=== PATIENT | male | born 1965 | race Two or more races ===

== ENCOUNTER 2025-08-23 13:56 | Inpatient (IN) | payer MEDICARE ==
[~2025-08-23] VITALS: Ht 170.2 cm; Wt 100.1 kg
--- NOTE | 2025-08-23 14:04 | ECG ---
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
--- NOTE | 2025-08-23 15:01 | ED.PDOC ---
HPI Comments 59 year old male presents to the ED with chief complaint of chest pain onset today (08/23/25). Patient was at dialysis center this morning, when he began experiencing Lt chest pain as well as RT leg pain. states patient's BP was elevated during dialysis. PMHx ESRD, DM, HTN. Denies shortness of breath, dizziness, fever, chills, nausea, vomiting, diarrhea, headache, hematemesis, dysuria, hematuria. No other symptoms or modifying factors present at this time. Chief Complaint: Chest Pain Time Seen by MD: 14:50 Reviewed Notes: Medications, Allergies Allergies: Coded Allergies: NO KNOWN ALLERGIES (Unverified , 05/06/25) Information Source: Patient, Spouse Mode of Arrival: Wheelchair Severity: Moderate Timing: Hours Duration: Since onset Prehospital treatment: None Location: Chest (L) Radiation: No Radiation Quality: Pressure Onset: At Rest Cardiac Risk Factors: HTN, Diabetes PE Risk Factors: None History of: None Modifying Factors: Nothing Past Medical History PAST MEDICAL HISTORY: DM, ESRD, HTN Family History Family History: Reviewed,noncontributory to illness, No family hx of Cancer, No family hx of DM, No family hx of Heart leticia, No family hx of HTN, No family hx ofKidney leticia, No family hx of Liver leticia, No family hx of Lung leticia, No family hx of Stroke Social History Smoker: Cigarettes Alcohol: Denies ETOH Use Drugs: Denies Drug Use Lives In: Home Constitutional: denies: chills, diaphoresis, fatigue, fever, malaise, sweats, weakness, others EENTM: denies: blurred vision, double vision, ear bleeding, ear discharge, ear drainage, ear pain, ear ringing, eye pain, eye redness, hearing loss, mouth pain, mouth swelling, nasal discharge, nose bleeding, nose congestion, nose pain, photophobia, tearing, throat pain, throat swelling, voice changes, others Respiratory: denies: cough, hemoptysis, orthopnea, SOB at rest, shortness of breath, SOB with excertion, stridor, wheezing, others Cardiovascular: reports: chest pain; denies: dizzy spells, diaphoresis, Dyspnea on exertion, edema, irregular heart beat, left arm pain, lightheadedness, palpitations, PND, syncope, others Gastrointestinal: denies: abdomen distended, abdominal pain, blood streaked bowels, constipated, diarrhea, dysphagia, difficulty swallowing, hematemesis, melena, nausea, poor appetite, poor fluid intake, rectal bleeding, rectal pain, vomiting, others Genitourinary: denies: burning, dysuria, flank pain, frequency, hematuria, incontinence, penile discharge, penile sore, pain, testicle pain, testicle swelling, urgency, others Neurological: denies: dizziness, fainting, headache, left sided numbness, left sided weakness, numbness, paresthesia, pre-existing deficit, right sided numbness, right sided weakness, seizure, speech problems, tingling, tremors, weakness, others Musculoskeletal: reports: others (Lt leg pain); denies: back pain, gout, joint pain, joint swelling, muscle pain, muscle stiffness, neck pain Integumetry: denies: bruises, change in color, change in hair/nails, dryness, laceration, lesions, lumps, rash, wounds, others Allergic/Immunocompromised: denies: Difficulty Healing, Frequent Infections, Hives, Itching, others Hematologic/Lymphatic: denies: anemia, blood clots, easy bleeding, easy bruising, swollen glands, others Endocrine: denies: excessive hunger, excessive sweating, excessive thirst, excessive urination, flushing, intolerance to cold, intolerance to heat, unexplained weight gain, unexplained weight loss, others Psychiatric: denies: anxiety, bipolar disorder, depression, hopeless, panic disorder, schizophrenia, sleepless, suicidal, others All Other Systems: Reviewed and Negative Physical Exam General Appearance: No Apparent Distress, Normal HEENT: Normal ENT Inspection, Pharynx Normal, TMs Normal Neck: Full Range of Motion, Non-Tender, Normal, Normal Inspection Respiratory: Chest Non-Tender, Lungs Clear, No Accessory Muscle Use, No Respiratory Distress, Normal Breath Sounds Cardiovascular: No Edema, No JVD, No Murmur, No Gallop, Normal Peripheral Pulses, Regular Rate/Rhythm Breast Exam: Deferred Gastrointestinal: No Organomegaly, Non Tender, No Pulsatile Mass, Normal Bowel Sounds, Soft Genitalia: Deferred Pelvic: Deferred Rectal: Deferred Extremities: No calf tenderness, Normal capillary refill, Normal inspection, Normal range of motion, Non-tender, No pedal edema Musculoskeletal : Apperance: Normal Neurologic: Alert, container maker II-XII nml as Tested, No Motor Deficits, Normal Affect, Normal Mood, No Sensory Deficits Cerebellar Function: Normal Reflexes: Normal Skin: Dry, Normal Color, Warm Lymphatic: No Adenopathy EKG EKG : Pulse Rate (adult): 96 Cardiac Rhythm: NSR Was a procedure done? Was a procedure done?: No CP Differential Dx Differential Diagnosis: MAT, VA Differential Diagnosis: CHF, HTN Essential, HTN Accelerated X-Ray, Labs, Meds, VS Vital Signs Date Time Temp Pulse Resp B/P (MAP) Pulse Ox O2 Delivery O2 Flow Rate FiO2 08/23/25 17:07 92 08/23/25 16:31 98.2 92 18 167/85 (112) 95 98.2 08/23/25 16:31 92 18 95 Room Air 08/23/25 15:11 94 08/23/25 15:01 96 08/23/25 14:04 98.0 95 19 163/77 99 98.0 08/23/25 14:01 96 Lab Test 08/23/25 17:00 08/23/25 14:50 08/23/25 13:58 Range/Units Troponin I High Sensitivity 36 33 31 </=54 ng/L White Blood Count 5.4 4.4-10.8 10^3/uL Red Blood Count 3.46 L 4.5-5.90 10^6/uL Hemoglobin 10.5 L 13.5-17.5 g/dL Hematocrit 32.2 L 41.0-53.0 % Mean Corpuscular Volume 93.1 80.0-100.0 fL Mean Corpuscular Hemoglobin 30.2 28.0-32.0 pg Mean Corpuscular Hemoglobin Concent 32.5 32.0-36.0 g/dL Red Cell Distribution Width 17.7 H 11.8-14.3 % Platelet Count 124 L 140-450 10^3/uL Mean Platelet Volume 7.7 6.9-10.8 fL Neutrophils (%) (Auto) 74.6 37.0-80.0 % Lymphocytes (%) (Auto) 7.7 L 10.0-50.0 % Monocytes (%) (Auto) 9.9 0.0-12.0 % Eosinophils (%) (Auto) 6.6 0.0-7.0 % Basophils (%) (Auto) 1.2 0.0-2.0 % Neutrophils # (Auto) 4.1 1.6-8.6 10 ^3/uL Lymphocytes # (Auto) 0.4 0.4-5.4 10 ^3/uL Monocytes # (Auto) 0.5 0-1.3 10 ^3/uL Eosinophils # (Auto) 0.4 0-0.8 10 ^3/uL Basophils # (Auto) 0.1 0-0.2 10 ^3/uL Nucleated Red Blood Cells 0.0 % Sodium Level 137 136-145 mmol/L Potassium Level 4.6 3.5-5.1 mmol/L Chloride Level 94 L 98-107 mmol/L Carbon Dioxide Level 31 20-31 mmol/L Anion Gap 12 5-15 Blood Urea Nitrogen 35 H 9-23 mg/dL Creatinine 5.16 H 0.700-1.30 mg/dL Glomerular Filtration Rate Calc 12 >90 mL/min BUN/Creatinine Ratio 6.8 L 10.0-20.0 Serum Glucose 241 H 74-106 mg/dL Calcium Level 9.0 8.7-10.4 mg/dL B-Type Natriuretic Peptide 1588.03 0-100 pg/mL [place] [id number] Ph: [phone] DIAGNOSTIC IMAGING Diagnostic Imaging Report : [id number] Signed PATIENT: JARRETT PAT ACCT: [id number] UNIT: [id number] : 1965 LOC: ER ROOM / BED: / AGE / SEX: 59 / M ADM STATUS: REG ER SERVICE [id number] ORDERING PHYSICIAN: EDILBERTO MARTÍNEZ MD PROCEDURE(s): CXRP - CHEST PORTABLE REASON: cp ORDER NUMBER(s): [id number], ACCESSION NUMBER(s): [id number] XY CHEST PORTABLE, HISTORY: cp COMPARISON: XY CHEST PORTABLE on DOS: 08/16/25, XY CHEST PORTABLE on DOS: 08/09/25, XY CHEST PORTABLE on DOS: 07/26/25 XY CHEST PORTABLE on DOS: 08/16/25, XY CHEST PORTABLE on DOS: 08/09/25, XY CHEST PORTABLE on DOS: 07/26/25 TECHNICAL DATA: 1 view of the chest was obtained. FINDINGS: Lines and tubes: None Cardiomediastinal silhouette: normal Pulmonary vasculature: prominent Lung expansion: normal Lung airspace: normal Lung interstitium: normal Pleura: normal Pneumothorax: no Bones: Unremarkable Other: no IMPRESSION: Pulmonary vascular congestion. ATED BY: BOBY AGUILAR MD DICTATED DATE/TIME: 08/23/251528 SIGNED BY: BOBY AGUILAR MD SIGNED DATE/TIME: 08/23/251528 CC: Time of 1ST Reevaluation: 15:20 Reevaluation 1ST: Unchanged Patient Education/Counseling: Diagnosis, Treatment, Prognosis Family Education/Counseling: Diagnosis, Treatment, Prognosis SEPSIS Sepsis Screen Date sepsis recognized/suspect: Aug 23, 2025 Time Sepsis recognized/suspect: 1355 Recent Procedure: No On Antibiotic Therapy: No Respiratory Rate >20: No Heart Rate >90: No Temp<36 C (96.8 F) or >38.3 C: No SBP <90 or MAP <65 mmHG: No New Acute Mental Status Change: No Is the patient on CPAP, BIPAP,: No Physician Orders Urinalysis (08/23/25 14:01) Chest Portable (08/23/25 14:56) Vital Signs Date Time Temp Pulse Resp B/P (MAP) Pulse Ox O2 Delivery O2 Flow Rate FiO2 08/23/25 17:07 92 08/23/25 16:31 98.2 92 18 167/85 (112) 95 98.2 08/23/25 16:31 92 18 95 Room Air 08/23/25 15:11 94 08/23/25 15:01 96 08/23/25 14:04 98.0 95 19 163/77 99 98.0 08/23/25 14:01 96 Laboratory Tests Test 08/23/25 13:58 White Blood Count 5.4 10^3/uL (4.4-10.8) Departure 1 Departure Time of Disposition: 17:55 (Patient presented with shortness of breath that was concerning for possible STEMI, ACS, PE, Pneumonia, Muscle Strain, COPD, Dissection, Acute on Chronic systolic and Diastolic dysfunction. Data: 1. I ordered and reviewed the result of at least 3 labs including a CBC, BMP, and Troponin. 2. I independently interpreted the following tests: EKG which shows sinus arrhthmia and Chest X-ray which shows cardiomegaly.Risk:This patient has a high risk of morbidity due to further diagnostic testing or treatment and may suffer from an acute cardiac or respiratory disorder but is most consitent with an acute chf exacerbation. Patient should be admitted for further workup and possible expert consultation. ) Impression: Primary Impression: Acute on chronic systolic heart failure Additional Impression: Shortness of breath Disposition: ADMITTED INPATIENT Admit to: Tele Condition: Guarded Critical Care Note Critical Care Time?: Yes Critical care comment: Acute on chronic heart failure Authorized and Performed by: Edilberto Martínez MD Total critical care time: Approximately 43 minutes Due to a high probability of clinically significant, life threatening deterioration, the patient required my highest level of preparedness to intervene emergently and I personally spent this critical care time directly and personally managing the patient. This critical care time included obtaining a history; examining the patient; pulse oximetry; ordering and review of studies; arranging urgent treatment with development of a management plan; evaluation of patient's response to treatment; frequent reassessment; and, discussions with other providers. This critical care time was performed to assess and manage the high probability of imminent, life-threatening deterioration that could result in multi-organ failure. It was exclusive of separately billable procedures and treating other patients and teaching time. Please see my other sections and the rest of the note for further information on patient assessment and treatment. Stability Stability form required: No Heart Score Heart Score: Heart Score Response (Comments) Value History Slightly Suspicious 0 EKG Repolarization Disturb 1 Age 45-64 1 Risk Factors >3 or Hx ASHD 2 Troponin >3 x's Normal limit 2 Total 6 I personally scribed for EDILBERTO MARTÍNEZ MD ([email or web address]) on 08/23/25 at 15:01. El ectronically submitted by Renae Auguste ([email or web address]). I personally scribed for EDILBERTO MARTÍNEZ MD ([email or web address]) on 08/23/25 at 15:39. Electr onically submitted by Renae Auguste ([email or web address]). EDILBERTO MARTÍNEZ MD Aug 23, 2025 15:01
[2025-08-23 15:12] LABS: Hematocrit 32.2 % (41.0-53.0); Hemoglobin 10.5 g/dL (13.5-17.5); Mean Corpuscular Hemoglobin 30.2 pg (28.0-32.0); Mean Corpuscular Volume 93.1 fL (80.0-100.0); Nucleated Red Blood Cells % 0.0 %; Potassium 4.6 mmol/L (3.5-5.1); Sodium 137 mmol/L (136-145)
[2025-08-23 15:14] LABS: Anion Gap 12 (5-15); Calcium 9.0 mg/dL (8.7-10.4); Carbon Dioxide 31 mmol/L (20-31)
[2025-08-23 15:16] LABS: Chloride 94 mmol/L (98-107)
[2025-08-23 15:19] LABS: BUN/Creatinine Ratio 6.8 (10.0-20.0); Blood Urea Nitrogen 35 mg/dL (9-23); Glucose 241 mg/dL (74-106)
--- NOTE | 2025-08-23 15:22 | DVH ---
XY CHEST PORTABLE, HISTORY: cp COMPARISON: XY CHEST PORTABLE on DOS: 08/16/25, XY CHEST PORTABLE on DOS: 08/09/25, XY CHEST PORTABLE o n DOS: 07/26/25 XY CHEST PORTABLE on DOS: 08/16/25, XY CHEST PORTABLE on DOS: 08/09/25, XY CHEST PORTABLE on DOS: 5 TECHNICAL DATA: 1 view of the chest was obtained. FINDINGS: Lines and tubes: None Cardiomediastinal silhouette: normal Pulmonary vasculature: prominent Lung expansion: normal Lung airspace: normal Lung interstitium: normal Pleura: normal Pneumothorax: no Bones: Unremarkable Other: no IMPRESSION: Pulmonary vascular congestion.
--- NOTE | 2025-08-23 16:04 | ECG ---
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
--- NOTE | 2025-08-23 17:09 | ECG ---
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
[2025-08-23] MEDS: FUROSEMIDE 40 MG/4 ML VIAL IV ONE (18:28)
[2025-08-23] MEDS ORDERED: ACETAMINOPHEN 325 MG TAB PO PRN (20:00)
[2025-08-23] MEDS ORDERED: DEXTROSE (50%) 50ML SYRG IV PRN (20:00)
[2025-08-23 21:24] VITALS: BP 176/84; PULSE 97; RESP 18; TEMP 98.4; O2SAT 99
[2025-08-23 22:02] LABS: Urine Protein, UAD 2+ (Negative)
--- NOTE | 2025-08-23 22:09 | DVHHP2 ---
History of Present Illness Reason for Visit: Chest pain History of Present Illness 59-year-old male presents for evaluation of chest pain. Patient reports a one day history of substernal pressure-like nonradiating chest pain with associated shortness for breath. Patient reports symptoms starting while being dialyzed. He states being unable to complete his dialysis session due to his blood pressure becoming really high in the 200s. No nausea or vomiting. No other acute complaints reported. Past Medical History Hypertension, end-stage renal disease, diabetes mellitus Past Surgical History Dialysis access Family History Noncontributory Smoke: <1 pack per day ALCOHOL: none Drugs: None Lives: with Family Review of Systems Review of Systems Review of systems are currently negative otherwise addressed in HPI. Allergies: Coded Allergies: NO KNOWN ALLERGIES (Unverified , 05/06/25) Medications Current Medications Medications Dose Ordered Sig/Luke Route Start Time Stop Time Status Last Admin Dose Admin Atorvastatin Calcium 40 mg HS PO 08/23/25 22:00 Isosorbide Mononitrate 60 mg DAILY PO 08/24/25 10:00 Sacubitril/ Valsartan 1 tab BID PO 08/23/25 22:00 Clopidogrel Bisulfate 75 mg DAILY PO 08/24/25 10:00 Diagnostic Test (Pha) 1 strip ACHS 08/23/25 22:00 Insulin Human Regular ACHS SC 08/23/25 22:00 Dextrose 50 ml UD PRN IV 08/23/25 20:00 Ondansetron HCl 4 mg Q4HP PRN IV 08/23/25 20:00 Acetaminophen 650 mg Q6HP PRN PO 08/23/25 20:00 Exam Vital Signs Vital Signs Date Time Temp Pulse Resp B/P (MAP) Pulse Ox O2 Delivery O2 Flow Rate FiO2 08/23/25 20:24 98.5 93 18 133/77 (95) 97 98.5 08/23/25 16:31 Room Air Exam Gen: 59-year-old male in mild distress Skin: Warm, dry, normal color and texture, no rash. HEENT: Normocephalic atraumatic, mucous membranes moist and pink. Neck: Cervical and supraclavicular nodes normal without enlargement, trachea is midline, thyroid gland is normal without masses. Pulmonary: Clear to auscultation and percussion bilaterally. Cardiac: Regular rate and rhythm. No murmur Abdomen: Soft, nontender, nondistended, bowel sounds present all 4 quadrants, no guarding, no rigidity, no organomegaly. Extremities: No cyanosis, clubbing, no edema Neuro: Cranial nerves II through XII grossly intact, normal affect and speech, no focal motor deficits. Labs/Xrays ORDERING PHYSICIAN: EDILBERTO MARTÍNEZ MD PROCEDURE(s): CXRP - CHEST PORTABLE REASON: cp ORDER NUMBER(s): [id number], ACCESSION NUMBER(s): [id number] XY CHEST PORTABLE, HISTORY: cp COMPARISON: XY CHEST PORTABLE on DOS: 08/16/25, XY CHEST PORTABLE on DOS: 08/09/25, XY CHEST PORTABLE on DOS: 07/26/25 XY CHEST PORTABLE on DOS: 08/16/25, XY CHEST PORTABLE on DOS: 08/09/25, XY CHEST PORTABLE on DOS: 07/26/25 TECHNICAL DATA: 1 view of the chest was obtained. FINDINGS: Lines and tubes: None Cardiomediastinal silhouette: normal Pulmonary vasculature: prominent Lung expansion: normal Lung airspace: normal Lung interstitium: normal Pleura: normal Pneumothorax: no Bones: Unremarkable Other: no IMPRESSION: Pulmonary vascular congestion. Labs Test 08/23/25 20:29 08/23/25 17:00 08/23/25 13:58 Range/Units Urine Color Yellow Yellow Urine Clarity Clear Clear Urine pH 8.0 5.0-9.0 Urine Specific [place] 1.007 1.001-1.035 Urine Protein 2+ H Negative Urine Ketones Negative Negative Urine Blood Trace H Negative /uL Urine Nitrite Negative Negative Urine Bilirubin Negative Negative Urine Urobilinogen Normal Negative mg/dL Urine Leukocyte Esterase Trace Negative /uL Urine RBC None seen 0 - 3 /hpf Urine Squamous Epithelial Cells None seen <5 /hpf Urine Bacteria None seen None Seen /hpf Urine Glucose 3+ H Normal mg/dL Troponin I High Sensitivity 36 </=54 ng/L White Blood Count 5.4 4.4-10.8 10^3/uL Red Blood Count 3.46 L 4.5-5.90 10^6/uL Hemoglobin 10.5 L 13.5-17.5 g/dL Hematocrit 32.2 L 41.0-53.0 % Mean Corpuscular Volume 93.1 80.0-100.0 fL Mean Corpuscular Hemoglobin 30.2 28.0-32.0 pg Mean Corpuscular Hemoglobin Concent 32.5 32.0-36.0 g/dL Red Cell Distribution Width 17.7 H 11.8-14.3 % Platelet Count 124 L 140-450 10^3/uL Mean Platelet Volume 7.7 6.9-10.8 fL Neutrophils (%) (Auto) 74.6 37.0-80.0 % Lymphocytes (%) (Auto) 7.7 L 10.0-50.0 % Monocytes (%) (Auto) 9.9 0.0-12.0 % Eosinophils (%) (Auto) 6.6 0.0-7.0 % Basophils (%) (Auto) 1.2 0.0-2.0 % Neutrophils # (Auto) 4.1 1.6-8.6 10 ^3/uL Lymphocytes # (Auto) 0.4 0.4-5.4 10 ^3/uL Monocytes # (Auto) 0.5 0-1.3 10 ^3/uL Eosinophils # (Auto) 0.4 0-0.8 10 ^3/uL Basophils # (Auto) 0.1 0-0.2 10 ^3/uL Nucleated Red Blood Cells 0.0 % Sodium Level 137 136-145 mmol/L Potassium Level 4.6 3.5-5.1 mmol/L Chloride Level 94 L 98-107 mmol/L Carbon Dioxide Level 31 20-31 mmol/L Anion Gap 12 5-15 Blood Urea Nitrogen 35 H 9-23 mg/dL Creatinine 5.16 H 0.700-1.30 mg/dL Glomerular Filtration Rate Calc 12 >90 mL/min BUN/Creatinine Ratio 6.8 L 10.0-20.0 Serum Glucose 241 H 74-106 mg/dL Calcium Level 9.0 8.7-10.4 mg/dL B-Type Natriuretic Peptide 1588.03 0-100 pg/mL SEPSIS Sepsis Screen Date sepsis recognized/suspect: Aug 23, 2025 Time Sepsis recognized/suspect: 1355 Recent Procedure: No On Antibiotic Therapy: No Respiratory Rate >20: No Heart Rate >90: No Temp<36 C (96.8 F) or >38.3 C: No SBP <90 or MAP <65 mmHG: No New Acute Mental Status Change: No Is the patient on CPAP, BIPAP,: No Physician Orders Chest Portable (08/23/25 14:56) *Dr. Elo Ochoa -Zhao Velazquez (08/23/25 19:46) Atorvastatin (Lipitor) (08/23/25 22:00) Isosorbide Mononitrate Tablet (Imdur Er (08/24/25 10:00) Sacubitril-Valsartan (Entresto 24-26 Mg (08/23/25 22:00) Clopidogrel Bisulfate (Plavix) (08/24/25 10:00) Consistent Carb(Ccho)Diabetes (08/24/25 Breakfast) Glucose Blood (Accu-Chek Comfort Curve T (08/23/25 22:00) Insulin R (Human) (Insulin R) (08/23/25 22:00) Dextrose 50% Syringe (08/23/25 20:00) Admit (08/23/25 19:46) Ondansetron Hcl (Zofran) (08/23/25 20:00) Echo 2d Mode Cardiac Dop (08/23/25 19:46) Condition: Stable (08/23/25 19:46) Acetaminophen Tablet (Tylenol Tablet) (08/23/25 20:00) Bedrest With Bathroom Privileg (08/23/25 19:46) Vital Signs Date Time Temp Pulse Resp B/P (MAP) Pulse Ox O2 Delivery O2 Flow Rate FiO2 08/23/25 20:24 98.5 93 18 133/77 (95) 97 98.5 08/23/25 18:28 160/72 08/23/25 17:07 92 08/23/25 16:31 98.2 92 18 167/85 (112) 95 98.2 08/23/25 16:31 92 18 95 Room Air 08/23/25 15:11 94 08/23/25 15:01 96 Laboratory Tests Test 08/23/25 13:58 White Blood Count 5.4 10^3/uL (4.4-10.8) Medications Medications Dose Ordered Sig/Luke Route Start Time Stop Time Status Last Admin Dose Admin Furosemide 40 mg ONCE ONCE IV 08/23/25 18:00 08/23/25 18:05 DC 08/23/25 18:28 40 MG Assessment/Plan Assessment/Plan Assessment Fluid overload End-stage renal disease, dialysis dependent Acute on chronic congestive heart failure Diabetes mellitus Hypertension Plan Admit the patient to Med surge to the hospitalist Nephrology consultation Echocardiogram pending Resume home medications Continue treatment per orders. Plan discussed with: Patient My Orders Orders - JOVANI VENEGAS Procedure Category Date Status Time *Dr. Elo Ochoa -Da CONS 08/23/25 Transmitted Caroline 19:46 Atorvastatin (Lipitor) PHA 08/23/25 In Process 22:00 Isosorbide PHA 08/24/25 In Process Mononitrate Tablet 10:00 Sacubitril-Valsartan PHA 08/23/25 In Process (Entresto 24-26 Mg 22:00 Clopidogrel Bisulfate PHA 08/24/25 In Process (Plavix) 10:00 Consistent DIET 08/24/25 Transmitted Carb(Ccho)Diabetes Breakfast Glucose Blood PHA 08/23/25 In Process (Accu-Chek Comfort 22:00 Insulin R (Human) PHA 08/23/25 In Process (Insulin R) 22:00 Dextrose 50% Syringe PHA 08/23/25 In Process 20:00 Admit ADMIT 08/23/25 Transmitted 19:46 Ondansetron Hcl PHA 08/23/25 In Process (Zofran) 20:00 Echo 2d Mode Cardiac US 08/23/25 Logged DOP 19:46 Condition: Stable NUSRAT 08/23/25 In Process 19:46 Acetaminophen Tablet PHA 08/23/25 In Process (Tylenol Tablet) 20:00 Bedrest With Bathroom NUSRAT 08/23/25 In Process Privileg 19:46 Date of Service: Aug 23, 2025 Billing Provider: JOVANI VENEGAS Common Visit Codes: [id number] INP/OBS CARE (HIGH) JOVANI VENEGAS Aug 23, 2025 22:09
[2025-08-23 22:38] VITALS: BP 176/84; PULSE 84; PULSE 97; RESP 16; RESP 18; TEMP 98.4; O2SAT 98; O2SAT 99
[2025-08-23] MEDS: SACUBITRIL-VALSARTAN 24mg/26mg TAB PO SCH (23:01)
[2025-08-23] MEDS: ATORVASTATIN 20 MG TAB PO SCH (23:03)
[2025-08-24] VITALS (7 sets, daily range): BP systolic 150–163; BP diastolic 82–107; PULSE 86–100; RESP 18–20; TEMP 97.6–97.9; O2SAT 94–100
[2025-08-24] MEDS: KETOROLAC TROMETH 30 MG/ML 1ML VIAL IV ONE (03:38)
[2025-08-24] MEDS: hydrALAZINE HCL 20 MG/ML VL IV ONE (03:39)
[2025-08-24] MEDS: HYDROcodone-ACET 5/325MG TAB PO PRN (03:43)
[2025-08-24] MEDS: InsuLIN REG 1unit/0.01ml Soln (100units/ml) SC SCH (06:37)
[2025-08-24] MEDS: ACCU-CHEK COMFORT CURVE STRIP VI SCH (06:42)
[2025-08-24] MEDS: ISOSORBIDE MONONITRATE ER 60 MG TAB PO SCH (08:50)
[2025-08-24] MEDS: CLOPIDOGREL BISULFATE 75 MG TAB PO SCH (08:50)
[2025-08-24] MEDS: HYDROcodone-ACET 10/325MG TAB PO ONE (13:15)
--- NOTE | 2025-08-24 13:17 | DVHPN2 ---
Reviewed: Care Plan, H&P, Labs, Medications, Previous Orders, Radiology Changes from previous H/P or p: No Changes Objective Vitals Vital Signs Date Time Temp Pulse Resp B/P (MAP) Pulse Ox O2 Delivery O2 Flow Rate FiO2 08/24/25 12:38 97.9 87 19 163/85 (111) 99 97.9 08/23/25 22:38 Room Air* 0 21 Intake/Output Intake and Output 08/24/25 07:00 Intake Total 200 ml Balance 200 ml Intake Oral 200 ml # Bowel Movements 1 Medications Current Medications Medications Dose Ordered Sig/Luke Route Start Time Stop Time Status Last Admin Dose Admin Atorvastatin Calcium 40 mg HS PO 08/23/25 22:00 08/23/25 23:03 40 MG Isosorbide Mononitrate 60 mg DAILY PO 08/24/25 10:00 08/24/25 08:50 60 MG Sacubitril/ Valsartan 1 tab BID PO 08/23/25 22:00 08/24/25 09:04 1 TAB Clopidogrel Bisulfate 75 mg DAILY PO 08/24/25 10:00 08/24/25 08:50 75 MG Diagnostic Test (Pha) 1 strip ACHS 08/23/25 22:00 08/24/25 11:24 1 STRIP Insulin Human Regular ACHS SC 08/23/25 22:00 08/24/25 12:15 3 UNITS Dextrose 50 ml UD PRN IV 08/23/25 20:00 Ondansetron HCl 4 mg Q4HP PRN IV 08/23/25 20:00 Acetaminophen 650 mg Q6HP PRN PO 08/23/25 20:00 Acetaminophen/ Hydrocodone Bitart 1 tab Q6HPRN PRN PO 08/24/25 03:15 08/24/25 11:23 1 TAB Laboratory Results Laboratory Tests 08/23/25 13:58 Chemistry Test 08/23/25 13:58 Calcium Level 9.0 mg/dL (8.7-10.4) Cardiac Markers Test 08/23/25 13:58 B-Type Natriuretic Peptide 1588.03 pg/mL (0-100) Urinalysis Test 08/23/25 20:29 Urine Color Yellow (Yellow) Urine Clarity Clear (Clear) Urine pH 8.0 (5.0-9.0) Urine Specific [place] 1.007 (1.001-1.035) Urine Protein 2+ (Negative) H Urine Ketones Negative (Negative) Urine Blood Trace /uL (Negative) H Urine Nitrite Negative (Negative) Urine Bilirubin Negative (Negative) Urine Urobilinogen Normal mg/dL (Negative) Urine Leukocyte Esterase Trace /uL (Negative) Urine RBC 3 /hpf (0 - 3) Urine Microscopic WBC 4 /HPF (0-3) H Urine Squamous Epithelial Cells Mod /hpf (<5) Urine Bacteria None seen /hpf (None Seen) Urine Glucose 3+ mg/dL (Normal) H Labs and/or images reviewed: Labs reviewed by me, Image(s) reviewed by me Assessment/Plan Assessment/Plan Chest pain troponin negative consult for Dr. Santo Fluid overload End-stage renal disease, dialysis dependent consult with Dr. Elo Calle on chronic congestive heart failure: Cardiology consult Diabetes mellitus Hypertension Time Spent 70 minutes Advanced care planning time 20 minutes Patient is full code Plan discussed with: Patient My Orders Orders - ZEESHAN ESPINOZA MD Procedure Category Date Status Time * Cardiology Consult CONS 08/24/25 Verified 13:06 Date of Service: Aug 24, 2025 Billing Provider: ZEESHAN ESPINOZA MD Common Visit Codes: [id number] CARE 30-74 MIN ZEESHAN ESPINOZA MD Aug 24, 2025 13:17
--- NOTE | 2025-08-24 14:04 | DVHINCON2 ---
Date Seen: Aug 24, 2025 Referring Physician MD Andre Reason for Consultation Chest pain History of Present Illness This is a 59-year-old male patient who presents to emergency room with chief complaint of chest pain. Patient reports he was at his dialysis session undergoing dialysis when he began experiencing chest pain. He also states he noted that his blood pressure was greater than 200s systolic at that time. He describes the chest pain as unprovoked, intermittent, squeezing in nature, substernal and nonradiating. He denies any associated symptoms. He was brought to the emergency room for further evaluation. Initial twelve lead electrocardiogram reveals normal sinus rhythm without any significant ST segment changes and artifact noted. Initial troponin level of 31ng/L with flat trend thereafter. Significant past medical history includes coronary artery disease s/p multiple PTCA's and 7 BLANCA (on Plavix and aspirin), congestive heart failure, hypertension, dyslipidemia, COPD with continuous home O2 use, end-stage renal disease on hemodialysis, type 2 diabetes mellitus, and obesity. The patient states he used to follow up with [employer] in the outpatient setting, but has been unable to recently due to insurance changes. Past Medical History Past medical history reviewed. No other significant than mentioned above. Past Surgical History Cholecystectomy Appendectomy Laminectomy Family History: Patient reports no known family medical history. Family History Family history reviewed. Social History Patient has a 38 pack-year history, quit smoking November 17, 2024 Denies illicit drug use Denies alcohol use Allergies: Coded Allergies: NO KNOWN ALLERGIES (Unverified , 05/06/25) Home Meds Home medications reviewed. Current Medications Current Medications Medications (Trade) Dose Ordered Sig/Luke Route PRN Reason Start Time Stop Time Status Last Admin Atorvastatin Calcium (Lipitor) 40 mg HS PO 08/23/25 22:00 08/23/25 23:03 Isosorbide Mononitrate (Imdur Er Tablet) 60 mg DAILY PO 08/24/25 10:00 08/24/25 08:50 Sacubitril/ Valsartan (Entresto 24-26 Mg tab) 1 tab BID PO 08/23/25 22:00 08/24/25 09:04 Clopidogrel Bisulfate (Plavix) 75 mg DAILY PO 08/24/25 10:00 08/24/25 08:50 Diagnostic Test (Pha) (Accu-Chek Comfort Curve T) 1 strip ACHS 08/23/25 22:00 08/24/25 11:24 Insulin Human Regular (InsuLIN R) ACHS SC 08/23/25 22:00 08/24/25 12:15 Dextrose 50 ml UD PRN IV Blood Sugar LESS THAN 60 08/23/25 20:00 Ondansetron HCl (Zofran) 4 mg Q4HP PRN IV NAUSEA / VOMITING 08/23/25 20:00 Acetaminophen (Tylenol Tablet) 650 mg Q6HP PRN PO PAIN SCALE 1-3 OR TEMP>100.4 08/23/25 20:00 Acetaminophen/ Hydrocodone Bitart ([place] 5/325MG Tab) 1 tab Q6HPRN PRN PO MODERATE PAIN (4-6 PAIN SCALE) 08/24/25 03:15 08/24/25 11:23 Acetaminophen/ Hydrocodone Bitart ([place] 10/325MG Tab) 1 tab Q6HP PO 08/24/25 18:00 Future Hold Review of Systems Constitutional: No symptom reported Ears, Nose, & Throat: No symptom reported Eyes: No symptom reported Neurological: No symptoms reported Pulmonary/Respiratory: No symptoms reported Cardiovascular: Chest pain Gastrointestinal: No symptom reported Genitourinary: No symptom reported Musculoskeletal: No symptom reported Skin: No symptom reported Psychiatric: No symptom reported Endocrine: No symptom reported Hematologic/Lymphatic: No symptom reported Vital Signs Vital Signs Date Time Temp Pulse Resp B/P (MAP) Pulse Ox O2 Delivery O2 Flow Rate FiO2 08/24/25 12:38 97.9 87 19 163/85 (111) 99 97.9 08/23/25 22:38 Room Air* 0 21 Physical Exam General Appearance: Cooperative. Obese Pulmonary/Respiratory: Clear, bilateral breaths sounds. Cardiovascular/Chest: Regular rate and rhythm. Peripheral Pulses: 2+ Radial (R). 2+ Radial (L). 2+ Pedal (R). 2+ Pedal (L) Abdominal Exam: Normal bowel sounds. Ankle Exam: Mild nonpitting ankle edema Lower extremities: Negative lower extremity edema Neuro/Mental Status: A/OX4, coherent. Thoughts/Psych: Normal thought pattern. Appropriate mood and affect. Good judgment and insight. Appearance: No acute distress. Skin Exam: Normal inspection. Normal color. Warm and dry. Labs/Diagnostic Data Labs Test 08/24/25 11:23 08/23/25 20:29 08/23/25 17:00 08/23/25 13:58 Range/Units POC Glucose 172 H 70-106 mg/dl Urine Color Yellow Yellow Urine Clarity Clear Clear Urine pH 8.0 5.0-9.0 Urine Specific [place] 1.007 1.001-1.035 Urine Protein 2+ H Negative Urine Ketones Negative Negative Urine Blood Trace H Negative /uL Urine Nitrite Negative Negative Urine Bilirubin Negative Negative Urine Urobilinogen Normal Negative mg/dL Urine Leukocyte Esterase Trace Negative /uL Urine RBC 3 0 - 3 /hpf Urine Microscopic WBC 4 H 0-3 /HPF Urine Squamous Epithelial Cells Mod <5 /hpf Urine Bacteria None seen None Seen /hpf Urine Glucose 3+ H Normal mg/dL Troponin I High Sensitivity 36 </=54 ng/L White Blood Count 5.4 4.4-10.8 10^3/uL Red Blood Count 3.46 L 4.5-5.90 10^6/uL Hemoglobin 10.5 L 13.5-17.5 g/dL Hematocrit 32.2 L 41.0-53.0 % Mean Corpuscular Volume 93.1 80.0-100.0 fL Mean Corpuscular Hemoglobin 30.2 28.0-32.0 pg Mean Corpuscular Hemoglobin Concent 32.5 32.0-36.0 g/dL Red Cell Distribution Width 17.7 H 11.8-14.3 % Platelet Count 124 L 140-450 10^3/uL Mean Platelet Volume 7.7 6.9-10.8 fL Neutrophils (%) (Auto) 74.6 37.0-80.0 % Lymphocytes (%) (Auto) 7.7 L 10.0-50.0 % Monocytes (%) (Auto) 9.9 0.0-12.0 % Eosinophils (%) (Auto) 6.6 0.0-7.0 % Basophils (%) (Auto) 1.2 0.0-2.0 % Neutrophils # (Auto) 4.1 1.6-8.6 10 ^3/uL Lymphocytes # (Auto) 0.4 0.4-5.4 10 ^3/uL Monocytes # (Auto) 0.5 0-1.3 10 ^3/uL Eosinophils # (Auto) 0.4 0-0.8 10 ^3/uL Basophils # (Auto) 0.1 0-0.2 10 ^3/uL Nucleated Red Blood Cells 0.0 % Sodium Level 137 136-145 mmol/L Potassium Level 4.6 3.5-5.1 mmol/L Chloride Level 94 L 98-107 mmol/L Carbon Dioxide Level 31 20-31 mmol/L Anion Gap 12 5-15 Blood Urea Nitrogen 35 H 9-23 mg/dL Creatinine 5.16 H 0.700-1.30 mg/dL Glomerular Filtration Rate Calc 12 >90 mL/min BUN/Creatinine Ratio 6.8 L 10.0-20.0 Serum Glucose 241 H 74-106 mg/dL Calcium Level 9.0 8.7-10.4 mg/dL B-Type Natriuretic Peptide 1588.03 0-100 pg/mL Assessment Chest pain, rule out progressive coronary artery disease Severe coronary artery disease s/p multiple PTCAs and 7 BLANCA (on aspirin and Pl avix) Chronic compensated HFmrEF, NYHA class II Hypertension Dyslipidemia End-stage renal disease on hemodialysis COPD with continuous home O2 use Pulmonary hypertension Type 2 diabetes mellitus Thrombocytopenia Acute on chronic anemia History of tobacco use Obesity Plan/Recommendation We will continue with the following plan/recommendations (Dr. Santo): * Transthoracic echocardiogram to evaluate cardiac function and wall motion * Previous transthoracic echocardiogram from 05/07/2025 reveals an EF of 45% * Chest pain protocol * HEART score: 4 points (moderate score) * Aggressive BP control as tolerated * Antiplatelet therapy and lipid-lowering agent * Continue guideline directed medical therapy for CHF * Avoid ARNI/ABILIO/ARB, MRA and SGLT2i given renal disease * Close cardiac surveillance * Nuclear stress test The patient has underwent multiple coronary angiograms with left heart catheterizations with the last one done at this facility on 11/01/2024 (under different ) in which no catheter based intervention was deemed necessary at that time. The patient has not had a recent stress test. We will proceed with ordering a nuclear stress test given patient's presenting symptoms. In the meantime, continue with close cardiac surveillance and notify cardiology team immediately for any ECG changes. Thank you for allowing us to care for this patient. Please call with any questions or concerns. Critical care time spent: 44 minutes This medical document was created using an electronic medical record system with voice recognition software and computerized dictation system. Although this document has been carefully reviewed, there might still be some phonetic and typographical errors. Occasional wrong-word or ``sound-alike substitutions may have occurred due to the inherent limitations of voice recognition software. These areas are purely typographical due to imperfections of the software programs and do not reflect any compromise in the patient's medical care. Please read the chart carefully and recognize, using context, where these substitutions have occurred. Plan discussed with: Patient NYHA Physical activity limitations: Class2(Slight)fatigue,sob Date of Service: Aug 24, 2025 Billing Provider: RONA REBOLLEDO Cardiology Common Codes: [id number] INP/OBS CARE (High) Cardiology Consultation Codes: [id number] CONSULT <45MIN RONA REBOLLEDO Aug 24, 2025 14:04
--- NOTE | 2025-08-24 15:49 | DVHINCON2 ---
Date of service: Aug 24, [address] Oliver Powell Reason for Consultation Dialysis History of Present Illness 59 Y/O M with history of ESRD on HD , HTN, COPD, CAD s/p stent, and anemia of CKD presented with chief complaint of chest pain which started on dialysis yesterday. Troponin is negative x2. CXR shows pulmonary congestion. Nephrology consulted for dialysis Past Medical History ESRD HTN COPD CAD CHF Past Surgical History AVF creation Allergies: Coded Allergies: NO KNOWN ALLERGIES (Unverified , 05/06/25) Current Medications Current Medications Medications (Trade) Dose Ordered Sig/Luke Route PRN Reason Start Time Stop Time Status Last Admin Atorvastatin Calcium (Lipitor) 40 mg HS PO 08/23/25 22:00 08/23/25 23:03 Isosorbide Mononitrate (Imdur Er Tablet) 60 mg DAILY PO 08/24/25 10:00 08/24/25 08:50 Sacubitril/ Valsartan (Entresto 24-26 Mg tab) 1 tab BID PO 08/23/25 22:00 08/24/25 09:04 Clopidogrel Bisulfate (Plavix) 75 mg DAILY PO 08/24/25 10:00 08/24/25 08:50 Diagnostic Test (Pha) (Accu-Chek Comfort Curve T) 1 strip ACHS 08/23/25 22:00 08/24/25 11:24 Insulin Human Regular (InsuLIN R) ACHS SC 08/23/25 22:00 08/24/25 12:15 Dextrose 50 ml UD PRN IV Blood Sugar LESS THAN 60 08/23/25 20:00 Ondansetron HCl (Zofran) 4 mg Q4HP PRN IV NAUSEA / VOMITING 08/23/25 20:00 Acetaminophen (Tylenol Tablet) 650 mg Q6HP PRN PO PAIN SCALE 1-3 OR TEMP>100.4 08/23/25 20:00 Acetaminophen/ Hydrocodone Bitart ([place] 5/325MG Tab) 1 tab Q6HPRN PRN PO MODERATE PAIN (4-6 PAIN SCALE) 08/24/25 03:15 08/24/25 11:23 Acetaminophen/ Hydrocodone Bitart ([place] 10/325MG Tab) 1 tab Q6HP PO 08/24/25 18:00 Future Hold Aspirin 81 mg DAILY PO 08/25/25 10:00 Metoprolol Succinate (Toprol Xl) 25 mg DAILY PO 08/25/25 10:00 Hydralazine HCl (Apresoline Injection) 10 mg Q6HP PRN IV SBP>150 08/24/25 15:15 Family History: Patient reports no known family medical history. Review of Systems as per HPI, all other systems were reviewed and are negative. H&P Exam Vital Signs/I&O Vital Sign Date Time Temp Pulse Resp B/P (MAP) Pulse Ox O2 Delivery O2 Flow Rate FiO2 08/24/25 12:38 97.9 87 19 163/85 (111) 99 97.9 08/23/25 22:38 Room Air* 0 21 Intake and Output 08/23/25 08/24/25 19:00 07:00 Intake Total 200 ml Balance 200 ml Intake Oral 200 ml # Bowel Movements 1 Physical Exam Gen: NAD, AAOx3 HEENT: NC, AT Lungs: Crackles lung bases Cardiac: RRR, no murmur Abd: soft, no distention Ext: no edema Neuro: no focal deficits Labs/Diagnostic Data Labs/Diagnostic Data Laboratory Tests Test 08/24/25 15:34 08/24/25 11:23 08/23/25 20:29 08/23/25 17:00 Range/Units POC Glucose 172 H 70-106 mg/dl Urine Color Yellow Yellow Urine Clarity Clear Clear Urine pH 8.0 5.0-9.0 Urine Specific [place] 1.007 1.001-1.035 Urine Protein 2+ H Negative Urine Ketones Negative Negative Urine Blood Trace H Negative /uL Urine Nitrite Negative Negative Urine Bilirubin Negative Negative Urine Urobilinogen Normal Negative mg/dL Urine Leukocyte Esterase Trace Negative /uL Urine RBC 3 0 - 3 /hpf Urine Microscopic WBC 4 H 0-3 /HPF Urine Squamous Epithelial Cells Mod <5 /hpf Urine Bacteria None seen None Seen /hpf Urine Glucose 3+ H Normal mg/dL Troponin I High Sensitivity 36 </=54 ng/L Test 08/23/25 14:50 08/23/25 13:58 Range/Units Troponin I High Sensitivity 33 31 </=54 ng/L White Blood Count 5.4 4.4-10.8 10^3/uL Red Blood Count 3.46 L 4.5-5.90 10^6/uL Hemoglobin 10.5 L 13.5-17.5 g/dL Hematocrit 32.2 L 41.0-53.0 % Mean Corpuscular Volume 93.1 80.0-100.0 fL Mean Corpuscular Hemoglobin 30.2 28.0-32.0 pg Mean Corpuscular Hemoglobin Concent 32.5 32.0-36.0 g/dL Red Cell Distribution Width 17.7 H 11.8-14.3 % Platelet Count 124 L 140-450 10^3/uL Mean Platelet Volume 7.7 6.9-10.8 fL Neutrophils (%) (Auto) 74.6 37.0-80.0 % Lymphocytes (%) (Auto) 7.7 L 10.0-50.0 % Monocytes (%) (Auto) 9.9 0.0-12.0 % Eosinophils (%) (Auto) 6.6 0.0-7.0 % Basophils (%) (Auto) 1.2 0.0-2.0 % Neutrophils # (Auto) 4.1 1.6-8.6 10 ^3/uL Lymphocytes # (Auto) 0.4 0.4-5.4 10 ^3/uL Monocytes # (Auto) 0.5 0-1.3 10 ^3/uL Eosinophils # (Auto) 0.4 0-0.8 10 ^3/uL Basophils # (Auto) 0.1 0-0.2 10 ^3/uL Nucleated Red Blood Cells 0.0 % Sodium Level 137 136-145 mmol/L Potassium Level 4.6 3.5-5.1 mmol/L Chloride Level 94 L 98-107 mmol/L Carbon Dioxide Level 31 20-31 mmol/L Anion Gap 12 5-15 Blood Urea Nitrogen 35 H 9-23 mg/dL Creatinine 5.16 H 0.700-1.30 mg/dL Glomerular Filtration Rate Calc 12 >90 mL/min BUN/Creatinine Ratio 6.8 L 10.0-20.0 Serum Glucose 241 H 74-106 mg/dL Calcium Level 9.0 8.7-10.4 mg/dL B-Type Natriuretic Peptide 1588.03 0-100 pg/mL Assessment ESRD on HD Chest pain, negative serial troponin. rule out ACS Acute on chronic diastolic CHF COPD Hypertension Anemia of CKD Hyperphosphatemia Secondary hyperparathyroidism Metabolic acidosis Azotemia Plan: last HD was yesterday at [facility]. Next HD tomorrow () [facility] post HD as needed. goal Hb: 10-11 g/dl Cardiology consult Continue Metoprolol XL 25 mg PO daily aspirin and lipitor Plan discussed with: Patient DAVID GROVE MD Aug 24, 2025 15:49
[2025-08-24 16:01] LABS: Triglycerides 60.0 mg/dL (< 150)
[2025-08-24 16:02] LABS: Magnesium 2.2 mg/dL (1.6-2.6)
[2025-08-24 16:03] LABS: Cholesterol 147.0 mg/dL (< 200)
[2025-08-24 16:04] LABS: HDL Cholesterol 81.0 mg/dL (40-59)
[2025-08-24] MEDS: HYDROcodone-ACET 10/325MG TAB PO SCH (16:48)
[2025-08-25] VITALS (8 sets, daily range): BP systolic 124–177; BP diastolic 80–92; PULSE 63–95; RESP 17–19; TEMP 97.5–98.7; O2SAT 95–100
[2025-08-25] MEDS: hydrALAZINE HCL 20 MG/ML VL IV PRN (01:10)
[2025-08-25 06:41] LABS: Hematocrit 32.8 % (41.0-53.0); Hemoglobin 10.7 g/dL (13.5-17.5); Mean Corpuscular Hemoglobin 30.3 pg (28.0-32.0); Mean Corpuscular Volume 92.6 fL (80.0-100.0); Nucleated Red Blood Cells % 0.0 %
--- NOTE | 2025-08-25 06:47 | DVHPN2 ---
Progress Note - Dictate Date Seen: Aug 25, 2025 Medical Necessity Reason Pt with a Central, PICC or Fol: No Subjective no new symptoms vital signs Vital Sign Date Time Temp Pulse Resp B/P (MAP) Pulse Ox O2 Delivery O2 Flow Rate FiO2 08/25/25 05:00 97.5 89 17 142/84 (103) 100 97.5 08/24/25 20:00 Nasal Cannula* 4 36 Total Intake and Output 08/24/25 08/24/25 08/25/25 15:00 23:00 07:00 Intake Total 650 ml 800 ml Output Total 250 ml 500 ml Balance 400 ml 300 ml medications Current Medications Medications Dose Ordered Sig/Luke Route Start Time Stop Time Status Last Admin Dose Admin Atorvastatin Calcium 40 mg HS PO 08/23/25 22:00 08/24/25 21:34 Isosorbide Mononitrate 60 mg DAILY PO 08/24/25 10:00 08/24/25 08:50 Sacubitril/ Valsartan 1 tab BID PO 08/23/25 22:00 08/24/25 21:34 Clopidogrel Bisulfate 75 mg DAILY PO 08/24/25 10:00 08/24/25 08:50 Diagnostic Test (Pha) 1 strip ACHS 08/23/25 22:00 08/25/25 06:23 Insulin Human Regular ACHS SC 08/23/25 22:00 08/25/25 06:25 Dextrose 50 ml UD PRN IV 08/23/25 20:00 Ondansetron HCl 4 mg Q4HP PRN IV 08/23/25 20:00 Acetaminophen 650 mg Q6HP PRN PO 08/23/25 20:00 Acetaminophen/ Hydrocodone Bitart 1 tab Q6HPRN PRN PO 08/24/25 03:15 08/24/25 21:53 Acetaminophen/ Hydrocodone Bitart 1 tab Q6HP PO 08/24/25 18:00 Hold 08/24/25 16:48 Aspirin 81 mg DAILY PO 08/25/25 10:00 Metoprolol Succinate 25 mg DAILY PO 08/25/25 10:00 Hydralazine HCl 10 mg Q6HP PRN IV 08/24/25 15:15 08/25/25 01:10 objective Gen: NAD, AAOx3 HEENT: NC, AT Lungs: Crackles lung bases Cardiac: RRR, no murmur Abd: soft, no distention Ext: no edema Neuro: no focal deficits laboratory and microbiology Test 08/25/25 05:58 Range/Units Serum Glucose Pending Assessment/Plan ESRD on HD Chest pain, negative serial troponin. rule out ACS Acute on chronic diastolic CHF COPD Hypertension Anemia of CKD Hyperphosphatemia Secondary hyperparathyroidism Metabolic acidosis Azotemia Plan: last HD was on Friday at [facility]. Next HD today () [facility] post HD as needed. goal Hb: 10-11 g/dl Cardiology consult Continue Metoprolol XL 25 mg PO daily aspirin and lipitor Plan discussed with: Patient DAVID GROVE MD Aug 25, 2025 06:47
[2025-08-25] MEDS: SODIUM CHL 0.9% 1000 ML BAG XX ONE (07:00)
[2025-08-25 07:02] LABS: Alanine Aminotransferase 16 U/L (7-40); Anion Gap 13 (5-15); BUN/Creatinine Ratio 6.6 (10.0-20.0); Calcium 9.4 mg/dL (8.7-10.4); Carbon Dioxide 29 mmol/L (20-31); Total Protein 6.8 g/dL (5.7-8.2)
[2025-08-25 07:03] LABS: Albumin 4.2 g/dL (3.2-4.8)
[2025-08-25 07:04] LABS: Alkaline Phosphatase 139 U/L (46-116); Bilirubin, Total 0.3 mg/dL (0.2-1.0); Blood Urea Nitrogen 48 mg/dL (9-23); Chloride 92 mmol/L (98-107); Glucose 164 mg/dL (74-106); Potassium 5.5 mmol/L (3.5-5.1); Sodium 134 mmol/L (136-145)
[2025-08-25] MEDS: REGADENOSON 0.4 MG/5 ML SYRG IV ONE ×2 (07:44→07:45)
[2025-08-25] MEDS: ONDANSETRON HCL 4 MG/2 ML VIAL IV PRN (09:43)
[2025-08-25] MEDS: METOPROLOL SUCCINATE XL 50 MG TAB PO SCH (10:24)
--- NOTE | 2025-08-25 11:24 | DVHPN2 ---
Reviewed: Care Plan, H&P, Labs, Medications, Previous Orders, Radiology Changes from previous H/P or p: No Changes Objective Vitals Vital Signs Date Time Temp Pulse Resp B/P (MAP) Pulse Ox O2 Delivery O2 Flow Rate FiO2 08/25/25 10:24 91 170/90 08/25/25 09:00 97.5 19 99 97.5 08/24/25 20:00 Nasal Cannula* 4 36 Intake/Output Intake and Output 08/25/25 07:00 Intake Total 1450 ml Output Total 750 ml Balance 700 ml Intake Oral 1450 ml Output Urine Total 750 ml # Voids 2 # Bowel Movements 1 Medications Current Medications Medications Dose Ordered Sig/Luke Route Start Time Stop Time Status Last Admin Dose Admin Atorvastatin Calcium 40 mg HS PO 08/23/25 22:00 08/24/25 21:34 40 MG Isosorbide Mononitrate 60 mg DAILY PO 08/24/25 10:00 08/25/25 10:23 60 MG Sacubitril/ Valsartan 1 tab BID PO 08/23/25 22:00 08/25/25 10:17 1 TAB Clopidogrel Bisulfate 75 mg DAILY PO 08/24/25 10:00 08/25/25 10:18 75 MG Diagnostic Test (Pha) 1 strip ACHS 08/23/25 22:00 08/25/25 06:23 1 STRIP Insulin Human Regular ACHS SC 08/23/25 22:00 08/25/25 06:25 3 UNITS Dextrose 50 ml UD PRN IV 08/23/25 20:00 Ondansetron HCl 4 mg Q4HP PRN IV 08/23/25 20:00 08/25/25 09:43 4 MG Acetaminophen 650 mg Q6HP PRN PO 08/23/25 20:00 Acetaminophen/ Hydrocodone Bitart 1 tab Q6HPRN PRN PO 08/24/25 03:15 08/24/25 21:53 1 TAB Acetaminophen/ Hydrocodone Bitart 1 tab Q6HP PO 08/24/25 18:00 Hold 08/24/25 16:48 1 TAB Aspirin 81 mg DAILY PO 08/25/25 10:00 08/25/25 10:23 81 MG Metoprolol Succinate 25 mg DAILY PO 08/25/25 10:00 08/25/25 10:24 25 MG Hydralazine HCl 10 mg Q6HP PRN IV 08/24/25 15:15 08/25/25 01:10 10 MG Laboratory Results Laboratory Tests 08/25/25 05:58 Chemistry Test 08/24/25 15:34 08/25/25 05:58 Magnesium Level 2.2 mg/dL (1.6-2.6) Albumin 4.2 g/dL (3.2-4.8) Calcium Level 9.4 mg/dL (8.7-10.4) Total Protein 6.8 g/dL (5.7-8.2) Lipid panel Test 08/24/25 15:34 Cholesterol Level 147 mg/dL (< 200) HDL Cholesterol 81 mg/dL (40-59) H Triglycerides Level 60 mg/dL (< 150) LFT Test 08/25/25 05:58 Alanine Aminotransferase (ALT) 16 U/L (7-40) Alkaline Phosphatase 139 U/L (46-116) H Aspartate Amino Transferase (AST) 14 U/L (13-40) Total Bilirubin 0.3 mg/dL (0.2-1.0) HgA1c, TSH Test 08/24/25 15:34 Hemoglobin A1c 5.8 % A1C (<5.7) H Thyroid Stimulating Hormone (TSH) 1.38 uIU/mL (0.55-4.78) Urinalysis Test 08/23/25 20:29 Urine Color Yellow (Yellow) Urine Clarity Clear (Clear) Urine pH 8.0 (5.0-9.0) Urine Specific [place] 1.007 (1.001-1.035) Urine Protein 2+ (Negative) H Urine Ketones Negative (Negative) Urine Blood Trace /uL (Negative) H Urine Nitrite Negative (Negative) Urine Bilirubin Negative (Negative) Urine Urobilinogen Normal mg/dL (Negative) Urine Leukocyte Esterase Trace /uL (Negative) Urine RBC 3 /hpf (0 - 3) Urine Microscopic WBC 4 /HPF (0-3) H Urine Squamous Epithelial Cells Mod /hpf (<5) Urine Bacteria None seen /hpf (None Seen) Urine Glucose 3+ mg/dL (Normal) H Labs and/or images reviewed: Labs reviewed by me, Image(s) reviewed by me Assessment/Plan Assessment/Plan Chest pain, rule out progressive coronary artery disease echo 40 percent ejection fraction, Cardiolite stress test pending, cardiology consult by Dr. Antoine appreciated Severe coronary artery disease s/p multiple PTCAs and 7 BLANCA (on aspirin and Plavix) Chronic compensated HFmrEF, NYHA class II Hypertension Dyslipidemia End-stage renal disease on hemodialysis Nephrology consult appreciated COPD with continuous home O2 use Pulmonary hypertension Type 2 diabetes mellitus Thrombocytopenia Acute on chronic anemia History of tobacco use Obesity Time Spent 70 minutes Advanced care planning time 20 Plan discussed with: Patient My Orders Orders - ZEESHAN ESPINOZA MD Procedure Category Date Status Time * Cardiology Consult CONS 08/24/25 Transmitted 13:06 Hydrocodone-Acet PHA 08/24/25 In Process 10/325mg Tab ([place] 18:00 Date of Service: Aug 25, 2025 Billing Provider: ZEESHAN ESPINOZA MD Common Visit Codes: [id number] CARE 30-74 MIN ZEESHAN ESPINOZA MD Aug 25, 2025 11:24
[2025-08-25] MEDS: HYDROcodone-ACET 10/325MG TAB PO SCH (13:06)
[2025-08-26] VITALS (9 sets, daily range): BP systolic 116–168; BP diastolic 56–89; PULSE 80–103; RESP 17–20; TEMP 98.2–98.7; O2SAT 98–100
[2025-08-26] MEDS ORDERED: NITROGLYCERIN 0.4 MG SL TAB SL PRN (04:00)
[2025-08-26] MEDS ORDERED: MORPHINE SULFATE INJ 2 MG/ml SYRG IV PRN (04:00)
[2025-08-26] MEDS: NITROGLYCERIN 0.4 MG SL TAB SL PRN (04:11)
--- NOTE | 2025-08-26 07:32 | ECG ---
[facility] Test Date: 2025-08-26 Test Time: 03:36:19 Pat Name: JARRETT PAT Department: Respiratoy Room: 0232T Gender: M [employer]: : 1965 Requested By: MARKOS MCKINNEY Order Number: [id number] Reading MD: Preet Santo Measurements Intervals Reading Rate: 91 P: 72 NV: 184 QRS: 90 QRSD: 103 T: 76 QT: 393 QTc: 484 Interpretive Statements Sinus rhythm Borderline right axis deviation Borderline prolonged QT interval Baseline wander in lead(s) V1 Electronically Signed On 08-27-2025 20:00:57 PDT by Preet Santo Please click the below link to view image of tracing.
[2025-08-26] MEDS ORDERED: INSU100I54 SC (08:26)
[2025-08-26] MEDS ORDERED: AMLO1TAB22 PO (08:26)
[2025-08-26] MEDS ORDERED: HYDR50TA47 PO (08:26)
[2025-08-26] MEDS ORDERED: ALL100T PO (08:26)
[2025-08-26] MEDS ORDERED: ASPI325T6 PO (08:26)
[2025-08-26] MEDS ORDERED: GABA-1308 PO (08:26)
[2025-08-26] MEDS ORDERED: CYCL-838 PO (08:26)
[2025-08-26] MEDS ORDERED: FURO1TAB31 PO (08:26)
[2025-08-26] MEDS ORDERED: METO25TA93 PO (08:26)
[2025-08-26] MEDS ORDERED: CLOP75TA28 PO (08:26)
[2025-08-26] MEDS ORDERED: ATOR40TA52 PO (08:26)
[2025-08-26] MEDS ORDERED: DIAZ-680 OR (08:26)
[2025-08-26] MEDS ORDERED: ISOS1TAB29 PO (08:26)
[2025-08-26] MEDS ORDERED: PANT40TA2 PO (08:26)
[2025-08-26] MEDS ORDERED: CLON0.1T PO (08:26)
[2025-08-26] MEDS ORDERED: SACU1TAB PO (08:26)
[2025-08-26] MEDS ORDERED: NITR0.4S29 SL (08:26)
--- NOTE | 2025-08-26 10:44 | DVHPN2 ---
Reviewed: Care Plan, H&P, Labs, Medications, Previous Orders, Radiology Changes from previous H/P or p: No Changes Objective Vitals Vital Signs Date Time Temp Pulse Resp B/P (MAP) Pulse Ox O2 Delivery O2 Flow Rate FiO2 08/26/25 09:45 168/89 08/26/25 09:43 94 08/26/25 09:00 98.7 20 98 98.7 08/26/25 08:00 Nasal Cannula* 4 36 Intake/Output Intake and Output 08/26/25 07:00 Intake Total 1300 ml Balance 1300 ml Intake Oral 1300 ml # Voids 5 # Bowel Movements 1 Medications Current Medications Medications Dose Ordered Sig/Luke Route Start Time Stop Time Status Last Admin Dose Admin Atorvastatin Calcium 40 mg HS PO 08/23/25 22:00 08/25/25 21:12 40 MG Isosorbide Mononitrate 60 mg DAILY PO 08/24/25 10:00 08/26/25 09:45 60 MG Sacubitril/ Valsartan 1 tab BID PO 08/23/25 22:00 08/26/25 09:45 1 TAB Clopidogrel Bisulfate 75 mg DAILY PO 08/24/25 10:00 08/26/25 09:43 75 MG Diagnostic Test (Pha) 1 strip ACHS 08/23/25 22:00 08/26/25 06:42 1 STRIP Insulin Human Regular ACHS SC 08/23/25 22:00 08/26/25 06:43 8 UNITS Dextrose 50 ml UD PRN IV 08/23/25 20:00 Ondansetron HCl 4 mg Q4HP PRN IV 08/23/25 20:00 08/25/25 09:43 4 MG Acetaminophen 650 mg Q6HP PRN PO 08/23/25 20:00 Acetaminophen/ Hydrocodone Bitart 1 tab Q6HPRN PRN PO 08/24/25 03:15 08/25/25 17:39 1 TAB Aspirin 81 mg DAILY PO 08/25/25 10:00 08/26/25 09:44 81 MG Metoprolol Succinate 25 mg DAILY PO 08/25/25 10:00 08/26/25 09:43 25 MG Hydralazine HCl 10 mg Q6HP PRN IV 08/24/25 15:15 08/26/25 05:02 10 MG Acetaminophen/ Hydrocodone Bitart 1 tab Q6H PO 08/25/25 13:00 08/26/25 06:42 1 TAB Nitroglycerin 0.4 mg Q5MINP PRN SL 08/26/25 04:00 08/26/25 04:11 0.4 MG Morphine Sulfate 2 mg Q30M PRN IV 08/26/25 04:00 Laboratory Results Laboratory Tests 08/25/25 05:58 Urinalysis Test 08/23/25 20:29 Urine Color Yellow (Yellow) Urine Clarity Clear (Clear) Urine pH 8.0 (5.0-9.0) Urine Specific [place] 1.007 (1.001-1.035) Urine Protein 2+ (Negative) H Urine Ketones Negative (Negative) Urine Blood Trace /uL (Negative) H Urine Nitrite Negative (Negative) Urine Bilirubin Negative (Negative) Urine Urobilinogen Normal mg/dL (Negative) Urine Leukocyte Esterase Trace /uL (Negative) Urine RBC 3 /hpf (0 - 3) Urine Microscopic WBC 4 /HPF (0-3) H Urine Squamous Epithelial Cells Mod /hpf (<5) Urine Bacteria None seen /hpf (None Seen) Urine Glucose 3+ mg/dL (Normal) H Labs and/or images reviewed: Labs reviewed by me, Image(s) reviewed by me Assessment/Plan Assessment/Plan Chest pain, rule out progressive coronary artery disease echo 40 percent ejection fraction, Cardiolite stress test pending, cardiology consult by Dr. Antoine appreciated Severe coronary artery disease s/p multiple PTCAs and 7 BLANCA (on aspirin and Plavix) Chronic compensated HFmrEF, NYHA class II Hypertension Dyslipidemia End-stage renal disease on hemodialysis Nephrology consult appreciated COPD with continuous home O2 use Pulmonary hypertension Type 2 diabetes mellitus Thrombocytopenia Acute on chronic anemia History of tobacco use Obesity Time Spent 70 minutes Advanced care planning time 20 mts Echocardiogram result pending Cardiolite stress test result pending Plan discussed with: Patient My Orders Orders - ZEESHAN EPSINOZA MD Procedure Category Date Status Time Hydrocodone-Acet PHA 08/25/25 In Process 10/325mg Tab ([place] 13:00 Date of Service: Aug 26, 2025 Billing Provider: ZEESHAN ESPINOZA MD Common Visit Codes: [id number] INP/OBS CARE(HIGH) ZEESHAN ESPINOZA MD Aug 26, 2025 10:43
--- NOTE | 2025-08-26 19:21 | DVHPN2 ---
Progress Note - Dictate Date Seen: Aug 26, 2025 Medical Necessity Reason Pt with a Central, PICC or Fol: No Subjective no new symptoms vital signs Vital Sign Date Time Temp Pulse Resp B/P (MAP) Pulse Ox O2 Delivery O2 Flow Rate FiO2 08/26/25 16:33 84 20 165/85 (111) 100 08/26/25 13:00 98.6 98.6 08/26/25 08:00 Nasal Cannula* 4 36 Total Intake and Output 08/25/25 08/25/25 08/26/25 15:00 23:00 07:00 Intake Total 600 ml 700 ml Balance 600 ml 700 ml medications Current Medications Medications Dose Ordered Sig/Luke Route Start Time Stop Time Status Last Admin Dose Admin Atorvastatin Calcium 40 mg HS PO 08/23/25 22:00 08/25/25 21:12 40 MG Isosorbide Mononitrate 60 mg DAILY PO 08/24/25 10:00 08/26/25 09:45 60 MG Sacubitril/ Valsartan 1 tab BID PO 08/23/25 22:00 08/26/25 09:45 1 TAB Clopidogrel Bisulfate 75 mg DAILY PO 08/24/25 10:00 08/26/25 09:43 75 MG Diagnostic Test (Pha) 1 strip ACHS 08/23/25 22:00 08/26/25 17:00 1 STRIP Insulin Human Regular ACHS SC 08/23/25 22:00 08/26/25 11:30 2 UNITS Dextrose 50 ml UD PRN IV 08/23/25 20:00 Ondansetron HCl 4 mg Q4HP PRN IV 08/23/25 20:00 08/25/25 09:43 4 MG Acetaminophen 650 mg Q6HP PRN PO 08/23/25 20:00 Acetaminophen/ Hydrocodone Bitart 1 tab Q6HPRN PRN PO 08/24/25 03:15 08/25/25 17:39 1 TAB Aspirin 81 mg DAILY PO 08/25/25 10:00 08/26/25 09:44 81 MG Metoprolol Succinate 25 mg DAILY PO 08/25/25 10:00 08/26/25 09:43 25 MG Hydralazine HCl 10 mg Q6HP PRN IV 08/24/25 15:15 08/26/25 11:24 10 MG Acetaminophen/ Hydrocodone Bitart 1 tab Q6H PO 08/25/25 13:00 08/26/25 18:48 1 TAB Nitroglycerin 0.4 mg Q5MINP PRN SL 08/26/25 04:00 08/26/25 04:11 0.4 MG Morphine Sulfate 2 mg Q30M PRN IV 08/26/25 04:00 Lorazepam 1 mg Q5MINP PRN IV 08/26/25 10:45 objective Gen: NAD, AAOx3 HEENT: NC, AT Lungs: Crackles lung bases Cardiac: RRR, no murmur Abd: soft, no distention Ext: no edema Neuro: no focal deficits laboratory and microbiology Laboratory Tests 08/25/25 05:58 Test 08/25/25 05:58 Range/Units Serum Glucose 164 H 74-106 mg/dL Assessment/Plan ESRD on HD Chest pain, negative serial troponin. rule out ACS Acute on chronic diastolic CHF COPD Hypertension Anemia of CKD Hyperphosphatemia Secondary hyperparathyroidism Metabolic acidosis Azotemia Plan: s/p HD yesterday- Next HD on Friday ALIY[facility] post HD as needed. goal Hb: 10-11 g/dl Cardiology consult Continue Metoprolol XL 25 mg PO daily aspirin and lipitor Plan discussed with: Patient, Spouse DAVID GROVE MD Aug 26, 2025 19:21
[2025-08-27] VITALS (7 sets, daily range): BP systolic 134–167; BP diastolic 63–88; PULSE 82–111; RESP 18–19; TEMP 97.7–98.2; O2SAT 96–100
--- NOTE | 2025-08-27 01:44 | DVHOP ---
DATE OF SURGERY: 08/24/2025 TECHNIQUE PERFORMED: Myocardial perfusion scan. DESCRIPTION OF PROCEDURE: The patient underwent resting images by giving intravenous Cardiolite with the help of the SPECT camera. Different images of the left ventricle were obtained, which include long axis, short axis, and horizontal axial view. The patient subsequently underwent the stress images and then was given intravenous Cardiolite. Stress and rest images both have been compared. There is a large perfusion defect noted in the inferior wall of the left ventricle, which does not reperfuse on the resting image. Normal perfusion of the interventricular septum, anterior wall and anterolateral wall. Left ventricular is moderately dilated. The patient's left ventricular ejection fraction is 34% and moderately reduced. CONCLUSION: * Large fixed perfusion defect noted in the inferior wall of the left ventricle consistent with previous extensive inferior wall myocardial infarction. * The left ventricle is dilated. * Normal perfusion of the interventricular septum, anterior wall and anterolateral wall. * The left ventricular ejection fraction is moderately reduced and 34% with previous inferior wall myocardial infarction. MD NAT Wallace TID: [id number] RECEIPT: [id number]
[2025-08-27] MEDS: SODIUM CHL 0.9% 1000 ML BAG XX ONE (07:00)
[2025-08-27] MEDS ORDERED: HYDR-4798 PO (10:50)
--- NOTE | 2025-08-27 10:52 | DVHPN2 ---
Reviewed: Care Plan, H&P, Labs, Medications, Previous Orders, Radiology Changes from previous H/P or p: No Changes Objective Vitals Vital Signs Date Time Temp Pulse Resp B/P (MAP) Pulse Ox O2 Delivery O2 Flow Rate FiO2 08/27/25 08:43 98.2 111 18 154/74 (100) 100 98.2 08/26/25 20:00 Nasal Cannula* 4 36 Intake/Output Intake and Output 08/27/25 06:59 Intake Total 1500 ml Output Total 1940 ml Balance -440 ml Intake Oral 1500 ml Output Urine Total 1940 ml Medications Current Medications Medications Dose Ordered Sig/Luke Route Start Time Stop Time Status Last Admin Dose Admin Atorvastatin Calcium 40 mg HS PO 08/23/25 22:00 08/26/25 21:01 40 MG Isosorbide Mononitrate 60 mg DAILY PO 08/24/25 10:00 08/26/25 09:45 60 MG Sacubitril/ Valsartan 1 tab BID PO 08/23/25 22:00 08/26/25 21:00 1 TAB Clopidogrel Bisulfate 75 mg DAILY PO 08/24/25 10:00 08/26/25 09:43 75 MG Diagnostic Test (Pha) 1 strip ACHS 08/23/25 22:00 08/27/25 06:03 1 STRIP Insulin Human Regular ACHS SC 08/23/25 22:00 08/26/25 21:03 4 UNITS Dextrose 50 ml UD PRN IV 08/23/25 20:00 Ondansetron HCl 4 mg Q4HP PRN IV 08/23/25 20:00 08/25/25 09:43 4 MG Acetaminophen 650 mg Q6HP PRN PO 08/23/25 20:00 Acetaminophen/ Hydrocodone Bitart 1 tab Q6HPRN PRN PO 08/24/25 03:15 08/26/25 20:55 1 TAB Aspirin 81 mg DAILY PO 08/25/25 10:00 08/26/25 09:44 81 MG Metoprolol Succinate 25 mg DAILY PO 08/25/25 10:00 08/26/25 09:43 25 MG Hydralazine HCl 10 mg Q6HP PRN IV 08/24/25 15:15 08/26/25 11:24 10 MG Acetaminophen/ Hydrocodone Bitart 1 tab Q6H PO 08/25/25 13:00 08/27/25 06:40 1 TAB Nitroglycerin 0.4 mg Q5MINP PRN SL 08/26/25 04:00 08/26/25 04:11 0.4 MG Morphine Sulfate 2 mg Q30M PRN IV 08/26/25 04:00 Lorazepam 1 mg Q5MINP PRN IV 08/26/25 10:45 Laboratory Results Laboratory Tests 08/25/25 05:58 Urinalysis Test 08/23/25 20:29 Urine Color Yellow (Yellow) Urine Clarity Clear (Clear) Urine pH 8.0 (5.0-9.0) Urine Specific [place] 1.007 (1.001-1.035) Urine Protein 2+ (Negative) H Urine Ketones Negative (Negative) Urine Blood Trace /uL (Negative) H Urine Nitrite Negative (Negative) Urine Bilirubin Negative (Negative) Urine Urobilinogen Normal mg/dL (Negative) Urine Leukocyte Esterase Trace /uL (Negative) Urine RBC 3 /hpf (0 - 3) Urine Microscopic WBC 4 /HPF (0-3) H Urine Squamous Epithelial Cells Mod /hpf (<5) Urine Bacteria None seen /hpf (None Seen) Urine Glucose 3+ mg/dL (Normal) H Labs and/or images reviewed: Labs reviewed by me, Image(s) reviewed by me Assessment/Plan Assessment/Plan Chest pain, rule out progressive coronary artery disease echo 40 percent ejection fraction, cardiology consult by Dr. Antoine appreciated Cardiolite stress test shows * Large fixed perfusion defect noted in the inferior wall of the left ventricle consistent with previous extensive inferior wall myocardial infarction. 34% ejection fraction Severe coronary artery disease s/p multiple PTCAs and 7 BLANCA (on aspirin and Plavix) Chronic compensated HFmrEF, NYHA class II Hypertension Dyslipidemia End-stage renal disease on hemodialysis Nephrology consult appreciated COPD with continuous home O2 use Pulmonary hypertension Type 2 diabetes mellitus Thrombocytopenia Acute on chronic anemia History of tobacco use Obesity Time Spent 70 minutes Advanced care planning time 20 mts Echocardiogram result pending Cardiolite stress test result pending Plan discussed with: Patient My Orders Orders - ZEESHAN ESPINOZA MD Procedure Category Date Status Time Lorazepam 2mg/Ml Inj PHA 08/26/25 In Process (Ativan Inj) 10:45 Date of Service: Aug 27, 2025 Billing Provider: ZEESHAN ESPINOZA MD Common Visit Codes: [id number] INP/OBS CARE(HIGH) ZEESHAN ESPINOZA MD Aug 27, 2025 10:52
--- NOTE | 2025-08-27 10:56 | DVHDS2 ---
Discharge Summary Date of Admission Aug 23, 2025 at 19:46 Date of Discharge: Aug 27, 2025 Admitting Diagnosis Chest pain Wounds: None Labs/Diagnostic Data: Laboratory Results Test 08/27/25 06:02 08/25/25 05:58 08/24/25 15:34 08/23/25 20:29 POC Glucose 127 mg/dl (70-106) White Blood Count 6.0 10^3/uL (4.4-10.8) Red Blood Count 3.54 10^6/uL (4.5-5.90) Hemoglobin 10.7 g/dL (13.5-17.5) Hematocrit 32.8 % (41.0-53.0) Mean Corpuscular Volume 92.6 fL (80.0-100.0) Mean Corpuscular Hemoglobin 30.3 pg (28.0-32.0) Mean Corpuscular Hemoglobin Concent 32.7 g/dL (32.0-36.0) Red Cell Distribution Width 17.6 % (11.8-14.3) Platelet Count 121 10^3/uL (140-450) Mean Platelet Volume 7.7 fL (6.9-10.8) Neutrophils (%) (Auto) 70.1 % (37.0-80.0) Lymphocytes (%) (Auto) 9.4 % (10.0-50.0) Monocytes (%) (Auto) 11.2 % (0.0-12.0) Eosinophils (%) (Auto) 8.1 % (0.0-7.0) Basophils (%) (Auto) 1.2 % (0.0-2.0) Neutrophils # (Auto) 4.2 10 ^3/uL (1.6-8.6) Lymphocytes # (Auto) 0.6 10 ^3/uL (0.4-5.4) Monocytes # (Auto) 0.7 10 ^3/uL (0-1.3) Eosinophils # (Auto) 0.5 10 ^3/uL (0-0.8) Basophils # (Auto) 0.1 10 ^3/uL (0-0.2) Nucleated Red Blood Cells 0.0 % Sodium Level 134 mmol/L (136-145) Potassium Level 5.5 mmol/L (3.5-5.1) Chloride Level 92 mmol/L (98-107) Carbon Dioxide Level 29 mmol/L (20-31) Anion Gap 13 (5-15) Blood Urea Nitrogen 48 mg/dL (9-23) Creatinine 7.25 mg/dL (0.700-1.30) Glomerular Filtration Rate Calc 8 mL/min (>90) BUN/Creatinine Ratio 6.6 (10.0-20.0) Serum Glucose 164 mg/dL (74-106) Calcium Level 9.4 mg/dL (8.7-10.4) Total Bilirubin 0.3 mg/dL (0.2-1.0) Aspartate Amino Transferase (AST) 14 U/L (13-40) Alanine Aminotransferase (ALT) 16 U/L (7-40) Alkaline Phosphatase 139 U/L (46-116) Total Protein 6.8 g/dL (5.7-8.2) Albumin 4.2 g/dL (3.2-4.8) Hepatitis B Surface Antigen Negative (Negative) Hemoglobin A1c 5.8 % A1C (<5.7) Magnesium Level 2.2 mg/dL (1.6-2.6) Triglycerides Level 60 mg/dL (< 150) Cholesterol Level 147 mg/dL (< 200) LDL Cholesterol 49 mg/dL (< 100) HDL Cholesterol 81 mg/dL (40-59) Thyroid Stimulating Hormone (TSH) 1.38 uIU/mL (0.55-4.78) Urine Color Yellow (Yellow) Urine Clarity Clear (Clear) Urine pH 8.0 (5.0-9.0) Urine Specific [place] 1.007 (1.001-1.035) Urine Protein 2+ (Negative) Urine Ketones Negative (Negative) Urine Blood Trace /uL (Negative) Urine Nitrite Negative (Negative) Urine Bilirubin Negative (Negative) Urine Urobilinogen Normal mg/dL (Negative) Urine Leukocyte Esterase Trace /uL (Negative) Urine RBC 3 /hpf (0 - 3) Urine Microscopic WBC 4 /HPF (0-3) Urine Squamous Epithelial Cells Mod /hpf (<5) Urine Bacteria None seen /hpf (None Seen) Urine Glucose 3+ mg/dL (Normal) Test 08/23/25 17:00 08/23/25 13:58 Troponin I High Sensitivity 36 ng/L (</=54) B-Type Natriuretic Peptide 1588.03 pg/mL (0-100) Other Laboratory Tests 08/25/25 05:58 Brief Hx & Hospital Course: 59-year-old male with a history of NM status post multiple stents congestive heart failure hypertension hypercholesterolemia ESRD on hemodialysis COPD pulmonary hypertension type 2 diabetes chronic anemia and thrombocytopenia chronic current smoker came in complaining of chest pain. Troponin negative x3 seen by croze cutter helper Dr. Deandre Antoine Cardiolite stress test shows large fixed perfusion defect noted in the inferior wall of the left ventricle consistent with a previous extensive inferior wall NM 34 percent ejection fraction no other abnormalities treated per ACS protocol patient feels better had dialysis being discharged home no further cardiac workup he will follow up with his primary Dr prescription for Cow[place] transmitted to pharmacy for chronic back pain. RN Ada at bedside at the time of discussion of the discharge plan with the patient Consults/Reason for consult Cardiology Dr. Deandre Antoine Operations or Procedures Cardiolite stress test Condition at Discharge: Fair Final Diagnosis/Problems List Chest pain, rule out progressive coronary artery disease echo 40 percent ejection fraction, cardiology consult by Dr. Antoine appreciated Cardiolite stress test shows * Large fixed perfusion defect noted in the inferior wall of the left ventricle consistent with previous extensive inferior wall myocardial infarction. 34% ejection fraction Severe coronary artery disease s/p multiple PTCAs and 7 BLANCA (on aspirin and Plavix) Chronic compensated HFmrEF, NYHA class II Hypertension Dyslipidemia End-stage renal disease on hemodialysis Nephrology consult appreciated COPD with continuous home O2 use Pulmonary hypertension Type 2 diabetes mellitus Thrombocytopenia Acute on chronic anemia History of tobacco use Obesity Discharge Disposition: Home Discharge Instruct/Medications Diet: Renal Activity: Light activity Follow Up/Referral: Resume all previous home medications Follow up with the primary Dr and croze cutter helper Dr. Deandre Antoine Medications: [facility] Scheduled Allopurinol (Zyloprim Tablet), 1 TAB PO DAILY, (Reported) Amlodipine Besylate (Amlodipine Besylate), 10 MG PO DAILY, (Reported) Aspirin (Aspirin), 81 MG PO DAILY, (Reported) Atorvastatin Calcium (Atorvastatin Calcium), 1 TAB PO DAILY, (Reported) Diazepam (Valium), 10 MG OR Q6HP, (Reported) Gabapentin (Gabapentin), 100 MG PO DAILY, (Reported) Insulin Lispro (Insulin Lispro Kwikpen), 10 UNIT SC DAILY, (Reported) Metoprolol Succinate (Metoprolol Succinate Er), 25 MG PO DAILY, (Reported) Nitroglycerin (Ntrostat Sublingual), 0.4 MG SL PRN, (Reported) Pantoprazole Sodium Sesquihydr (Protonix), 40 MG PO DAILY, (Reported) Scheduled PRN Clonidine Hydrochloride (Clonidine Hcl), 0.1 MG PO Q4HP PRN for SBP>160, (Reported) Hydrocodone-Acetaminophen (Hydrocodone Bitartrate/AC 10-325 mg), 1 TAB PO QID PRN Miscellaneous Medications Clopidogrel Bisulfate (Plavix), 75 MG PO, (Reported) Cyclobenzaprine Hcl (Cyclobenzaprine Hcl), 10 MG PO, (Reported) Furosemide (Lasix), 40 MG PO, (Reported) Hydralazine Hcl (Hydralazine Hcl), 100 MG PO, (Reported) Isosorbide Mononitrate (Isosorbide Mononitrate Er), 60 MG PO, (Reported) Sacubitril-Valsartan (Entresto 24-26 mg), 1 TAB PO, (Reported) 39 (Time taken for discharge summary 39 minutes) Discharge Statement: "Patient was advised to return to the ER or call 911 if any headaches, dizziness, shortness of breath, chest pain, abdominal pain, bleeding, fevers, or worsening of medical condition. Patient was counseled about treatment plan, medications, possible side effects, patientverbalized understanding. All questions were answered to the best of my ability. This discharge took greater then 30 minutes in planning, reviewing documentation, counseling the patient, and discussing with other team members." ASSESSMENT ASSESSMENT Hospital Course Uneventful Assessment Chest pain, rule out progressive coronary artery disease echo 40 percent ejection fraction, cardiology consult by Dr. Antoine appreciated Cardiolite stress test shows * Large fixed perfusion defect noted in the inferior wall of the left ventricle consistent with previous extensive inferior wall myocardial infarction. 34% ejection fraction Severe coronary artery disease s/p multiple PTCAs and 7 BLANCA (on aspirin and Plavix) Chronic compensated HFmrEF, NYHA class II Hypertension Dyslipidemia End-stage renal disease on hemodialysis Nephrology consult appreciated COPD with continuous home O2 use Pulmonary hypertension Type 2 diabetes mellitus Thrombocytopenia Acute on chronic anemia History of tobacco use Obesity Date of Service: Aug 27, 2025 Billing Provider: ZEESHAN ESPINOZA MD Common Visit Codes: [id number] DISCH DAY >30min ZEESHAN ESPINOZA MD Aug 27, 2025 10:56
[2025-08-28] MEDS: LORazepam 2MG/ML-1ML VIAL IV PRN (00:12)
[2025-08-28 01:00] VITALS: BP 149/80; PULSE 82; RESP 18; TEMP 97.9; O2SAT 96
[2025-08-28 01:18] LABS: Alanine Aminotransferase 16 U/L (7-40); Anion Gap 11 (5-15); BUN/Creatinine Ratio 7.2 (10.0-20.0); Calcium 9.6 mg/dL (8.7-10.4); Total Protein 7.0 g/dL (5.7-8.2)
[2025-08-28 01:19] LABS: Albumin 4.3 g/dL (3.2-4.8); Alkaline Phosphatase 151 U/L (46-116); Blood Urea Nitrogen 57 mg/dL (9-23); Carbon Dioxide 32 mmol/L (20-31); Chloride 93 mmol/L (98-107); Glucose 123 mg/dL (74-106); Sodium 136 mmol/L (136-145)
[2025-08-28 01:22] LABS: Bilirubin, Total 0.3 mg/dL (0.2-1.0); Potassium 6.1 mmol/L (3.5-5.1)
[2025-08-28] MEDS: SODIUM ZIRCONIUM CYCL 10 GM PAK PO ONE (02:57)
[2025-08-28] MEDS: DEXTROSE (50%) 50ML SYRG IV ONE (03:19)
[2025-08-28] MEDS: InsuLIN REG 1unit/0.01ml Soln (100units/ml) IV ONE (03:28)
[2025-08-28] MEDS: SODIUM BICARB 8.4% 50Meq/50ml SYR INJ IV ONE (03:29)
[2025-08-28 05:00] VITALS: BP 166/78; PULSE 85; RESP 18; TEMP 97.9; O2SAT 100
[2025-08-28] MEDS: SODIUM ZIRCONIUM CYCL 10 GM PAK PO SCH (06:00)
[2025-08-28 07:30] VITALS: PULSE 75
[2025-08-28 09:00] VITALS: BP 151/60; PULSE 76; RESP 17; TEMP 98.1; O2SAT 100
[2025-08-28] MEDS ORDERED: HYDR-4798 PO (11:20)
--- NOTE | 2025-08-28 11:23 | DVHPN2 ---
Reviewed: Care Plan, H&P, Labs, Medications, Previous Orders, Radiology Changes from previous H/P or p: No Changes Objective Vitals Vital Signs Date Time Temp Pulse Resp B/P (MAP) Pulse Ox O2 Delivery O2 Flow Rate FiO2 08/28/25 09:58 74 148/68 08/28/25 09:00 98.1 17 100 98.1 08/28/25 07:30 Nasal Cannula* 4 36 Intake/Output Intake and Output 08/28/25 07:00 Intake Total 1570 ml Output Total 550 ml Balance 1020 ml Intake Oral 1570 ml Output Urine Total 550 ml Medications Current Medications Medications Dose Ordered Sig/Luke Route Start Time Stop Time Status Last Admin Dose Admin Atorvastatin Calcium 40 mg HS PO 08/23/25 22:00 08/27/25 21:33 40 MG Isosorbide Mononitrate 60 mg DAILY PO 08/24/25 10:00 08/28/25 09:58 60 MG Sacubitril/ Valsartan 1 tab BID PO 08/23/25 22:00 08/28/25 09:58 1 TAB Clopidogrel Bisulfate 75 mg DAILY PO 08/24/25 10:00 08/28/25 09:57 75 MG Diagnostic Test (Pha) 1 strip ACHS 08/23/25 22:00 08/27/25 22:00 1 STRIP Insulin Human Regular ACHS SC 08/23/25 22:00 08/27/25 21:35 4 UNITS Dextrose 50 ml UD PRN IV 08/23/25 20:00 Ondansetron HCl 4 mg Q4HP PRN IV 08/23/25 20:00 08/25/25 09:43 4 MG Acetaminophen 650 mg Q6HP PRN PO 08/23/25 20:00 Acetaminophen/ Hydrocodone Bitart 1 tab Q6HPRN PRN PO 08/24/25 03:15 08/28/25 10:03 1 TAB Aspirin 81 mg DAILY PO 08/25/25 10:00 08/28/25 09:58 81 MG Metoprolol Succinate 25 mg DAILY PO 08/25/25 10:00 08/28/25 09:58 25 MG Hydralazine HCl 10 mg Q6HP PRN IV 08/24/25 15:15 08/26/25 11:24 10 MG Acetaminophen/ Hydrocodone Bitart 1 tab Q6H PO 08/25/25 13:00 08/27/25 18:52 1 TAB Nitroglycerin 0.4 mg Q5MINP PRN SL 08/26/25 04:00 08/26/25 04:11 0.4 MG Morphine Sulfate 2 mg Q30M PRN IV 08/26/25 04:00 Lorazepam 1 mg Q5MINP PRN IV 08/26/25 10:45 08/28/25 00:12 1 MG Zirconium Oxide 10 gm TID PO 08/28/25 06:00 08/29/25 22:01 Laboratory Results Laboratory Tests 08/25/25 05:58 08/28/25 00:45 08/28/25 05:04 Chemistry Test 08/28/25 00:45 Albumin 4.3 g/dL (3.2-4.8) Calcium Level 9.6 mg/dL (8.7-10.4) Total Protein 7.0 g/dL (5.7-8.2) LFT Test 08/28/25 00:45 Alanine Aminotransferase (ALT) 16 U/L (7-40) Alkaline Phosphatase 151 U/L (46-116) H Aspartate Amino Transferase (AST) 12 U/L (13-40) L Total Bilirubin 0.3 mg/dL (0.2-1.0) Urinalysis Test 08/23/25 20:29 Urine Color Yellow (Yellow) Urine Clarity Clear (Clear) Urine pH 8.0 (5.0-9.0) Urine Specific [place] 1.007 (1.001-1.035) Urine Protein 2+ (Negative) H Urine Ketones Negative (Negative) Urine Blood Trace /uL (Negative) H Urine Nitrite Negative (Negative) Urine Bilirubin Negative (Negative) Urine Urobilinogen Normal mg/dL (Negative) Urine Leukocyte Esterase Trace /uL (Negative) Urine RBC 3 /hpf (0 - 3) Urine Microscopic WBC 4 /HPF (0-3) H Urine Squamous Epithelial Cells Mod /hpf (<5) Urine Bacteria None seen /hpf (None Seen) Urine Glucose 3+ mg/dL (Normal) H Labs and/or images reviewed: Labs reviewed by me, Image(s) reviewed by me Assessment/Plan Assessment/Plan Chest pain, rule out progressive coronary artery disease echo 40 percent ejection fraction, cardiology consult by Dr. Antoine appreciated Cardiolite stress test shows * Large fixed perfusion defect noted in the inferior wall of the left ventricle consistent with previous extensive inferior wall myocardial infarction. 34% ejection fraction Severe coronary artery disease s/p multiple PTCAs and 7 BLANCA (on aspirin and Plavix) Chronic compensated HFmrEF, NYHA class II Hypertension Dyslipidemia End-stage renal disease on hemodialysis Nephrology consult appreciated COPD with continuous home O2 use Pulmonary hypertension Type 2 diabetes mellitus Thrombocytopenia Acute on chronic anemia History of tobacco use Obesity Time Spent 70 minutes Advanced care planning time 20 mts Echocardiogram result pending Cardiolite stress test result pending Patient awaiting dialysis today and he will be discharged. Plan discussed with: Patient Date of Service: Aug 28, 2025 Billing Provider: ZEESHAN ESPINOZA MD Common Visit Codes: [id number] INP/OBS CARE(HIGH) ZEESHAN ESPINOZA MD Aug 28, 2025 11:23
[2025-08-28 12:24] VITALS: BP 148/68; PULSE 74
--- NOTE | 2025-08-29 08:49 | DVHSR ---
APPROVED REPORT Exam: Nuclear Stress Test Indication: Chest pain BMI: 0 Stress Test Details Stress Test: Pharmacologic stress testing performed using 0.4 mg of regadenoson per 5 mL given IV ov er 10 seconds. HR Resting HR: 90 bpmMax Heart Rate (APMHR): 160.986344 bpm Max HR Achieved: 103 bpmTarget HR (85% APMHR): 136.583544 bpm % of APMHR: 64.38 Recovery HR: 95 bpm BP Resting BP: 153/82 mmHg Max BP: / mmHg Recovery BP: 167/79 mmHg ECG Resting ECG: Sinus Rhythm Clinical Reason for Termination: Completed protocol Nurse Comments Recieved pt. from [facility]. A/Ox4 on RA. Connected to nurse monitoring, VS stable. Rt IV flushes well. Reviewed POC. Pt. verbalized understanding of procedure including risks and side effects, agrees for stress testing. Lexiscan stress test performed per protocol. [facility] tech administered Cardiolite. Pt. tolerated well . Pt. stable, no change on exam. VS returned to baseline. Transferred to [facility] via wheelchair w/ te ch. 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 Time of rest injection: 15:25 Date: 08/24/2025 Time of rest imagin:25 Date: 08/24/2025 Administration Route: IV Administration Site: Right Arm Pharmacologic Stress Pharmacologic stress test was performed by injecting Regadenoson 0.4 mg IV push followed by the intra venous injection of 22.5 mCi of Tc-99m Sestamibi. Time of stress injection: 07:45 Date: 08/25/2025 Time of stress imagin:45 Date: 08/25/2025 Administration Route: IV Administration Site: Right Arm Gated Stress SPECT was performed 60 minutes after stress injection. The images were gated to evaluate regional wall motion and calculate left ventricular ejection fracti on. Stress only was performed in the Supine position. 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
--- NOTE | 2025-08-29 18:28 | DVHSR ---
APPROVED REPORT EXAM: LIMITED Two-dimensional echocardiogram for EF only.. Blood Pressure: 162/87 mmHg INDICATION EF Only RISK FACTORS Height: 5' 7", Weight: 230 DIMENSIONS LVDd5.3 (3.8-5.7cm)LA (2D) (1.9-4.0cm)Aortic Root (2.0-3.7cm) LVDs4.3 (2.5-4.0cm)LA (MM) (1.9-4.0cm)Aortic Cusp Exc (1.5-2.0cm) EF (%) 37.0 (55-70%)Rt. Atrium (1.9-4.0cm)Asc. Aorta cm IVSd1.3 (0.7-1.1cm)RV (D) (1.8-2.4cm) PWd1.2 (0.7-1.1cm) Mitral Valve MitralMitral Stenosis E/A ratio0.02D MVAcm2 Other Information Quality : LimitedRhythm : Conclusion Technically good study. Sinus rhythm. Left atrial enlargement with mild LV enlargement. Moderate mitral annular calcification of the base of the posterior mitral leaflet. Mild aortic scler osis without stenosis. There was a nodularity at the posterior mitral leaflet at the lateral aspect of the mitral valve and annulus. Diminished excursion of the posterior mitral leaflet. Left ventricular function is diminished. EF is about 35% with global hypokinesis. Mildly diminished RV function. Doppler not performed. No pericardial effusion masses or vegetations.
== END 2025-08-28 13:10 | disposition home or self-care (01) | DRG 302 ==
LOC: ER 13:56 → OVERFLOW 19:46 → EAST 21:24 → TELE-EAST 08-24 17:26
PROVIDERS: ADMIT Family Medicine; ATTEND Family Medicine
PROC: 5A1D70Z Performance of Urinary Filtration, Intermittent, Less than 6 Hours Per Day (ICD-10-PCS; principal; 2025-08-25)
PROC: 5A1D70Z Performance of Urinary Filtration, Intermittent, Less than 6 Hours Per Day (ICD-10-PCS; 2025-08-28)
DX: I25.10 Atherosclerotic heart disease of native coronary artery without angina pectoris (principal); N18.6 End stage renal disease; I13.2 Hypertensive heart and chronic kidney disease with heart failure and with stage 5 chronic kidney disease, or end stage renal disease; N25.81 Secondary hyperparathyroidism of renal origin; E87.20 Acidosis, unspecified; I50.22 Chronic systolic (congestive) heart failure; D69.6 Thrombocytopenia, unspecified; D63.1 Anemia in chronic kidney disease; J44.9 Chronic obstructive pulmonary disease, unspecified; I27.20 Pulmonary hypertension, unspecified; E83.39 Other disorders of phosphorus metabolism; Z68.36 Body mass index [BMI] 36.0-36.9, adult; E66.9 Obesity, unspecified; E78.00 Pure hypercholesterolemia, unspecified; F17.210 Nicotine dependence, cigarettes, uncomplicated; E11.22 Type 2 diabetes mellitus with diabetic chronic kidney disease; Z99.2 Dependence on renal dialysis; I25.2 Old myocardial infarction; Z95.5 Presence of coronary angioplasty implant and graft; Z99.81 Dependence on supplemental oxygen; Z79.899 Other long term (current) drug therapy
CPT/HCPCS: 36415; 71045; 78452; 80048; 80053; 80061; 81001; 82962; 83036; 83735; 83880; 84132; 84443; 84484; 85025; 87340; 90935; 93005; 93017; 93306; 96374; 99291; G0378; J1815; J1885; J2405